=== PATIENT | female | born 1985 | race Caucasian/White ===

== ENCOUNTER 2019-06-19 08:23 | Outpatient (CLI) | payer MEDICAID, SELFPAY ==
--- NOTE | 2019-06-19 09:00 | IR_ITS ---
WS: [id number] Lumbar myelogram, 06/19/2019 Clinical Data: S/P fusion/fixation Comparison: Lumbar spine, 04/03/2019. Fluoroscopy time: 1.0 minutes. Findings: With the usual technique, a 22 gauge spinal needle was inserted into the lumbar subarachnoid space at L2-L3. The contrast material was hand injected. Approximately 15 mL of 240 mg/mL Omnipaque filled the lumbar subarachnoid space. The patient has had a posterior lumbar fusion with bilateral pedicle screws connected with rods at L5 -S1. There is an artificial disc at L5-S1. A laminectomy at L5 is noted. There are clips in the right upper quadrant from a cholecystectomy. No intramedullary, intradural or extradural defects could be seen. The contrast material normally in to the lower thoracic subarachnoid space. Flexion, extension and neutral lateral views demonstrated no limitations of motion or increase in sub luxation. Posterior lumbar fusion was stable. IR/IR myelogram sp lumbar [id number] Impression: 1. Negative lumbar myelogram. 2. Posterior lumbar fusion at L5-S1 is stable.
[2019-06-19] MEDS: iohexol 240 mg/mL 50 mL Btl INTRATHECA (10:00)
--- NOTE | 2019-06-19 11:30 | CT_ITS ---
WS: [id number] CT of the lumbar spine, additional two-dimensional coronal and sagittal imaging was obtained. 06/19/19 Clinical Data: S/P fusion/fixation Comparison: None. DLP: 1906.[address] scans at [facility] use at least one of these dose optimization techniques: automat ed exposure control; mA and/or kV adjustment per patient size (includes targeted exams where dose is matched to clinical indication); or iterative reconstruction. Findings: The myelographic contrast material filled the lumbar subarachnoid space. The posterior lumb ar fusion at L5-S1 with bilateral pedicle screws appears intact. Artificial disc material at L5-S1 is noted. The remainder of the disc levels are normal. No compression fractures are seen. The transvers e processes and SI joints are not remarkable. T12-L1: No canal stenosis, disc bulge or foraminal narrowing is seen. L1-L2: No canal stenosis, disc bulge or foraminal narrowing is seen. L2-L3: No canal stenosis, disc bulge or foraminal narrowing is seen. L3-L4: No canal stenosis, disc bulge or foraminal narrowing is seen. L4-L5: There is facet joint arthritis causing mild bilateral foraminal stenosis along with a small di sc bulge. A laminectomy has been performed. L5-S1: No canal stenosis, disc bulge or foraminal narrowing is seen. CT/CT lumbar spine w con [id number] Impression: 1. Intact lumbar fusion at L5-S1. 2. Minimal facet joint arthritis with central disc bulge at L4-L5 causing mild bilateral foraminal stenosis.
== END 2019-06-19 08:24 | disposition home or self-care (01) ==
LOC: RADWPI 08:28
PROVIDERS: PCP Nurse Practitioner Family; Visit Provider Licensed Practical Nurse
DX: Z98.1 Arthrodesis status (principal); M51.26 Other intervertebral disc displacement, lumbar region
CPT/HCPCS: 62304; 72120; 72132; Q9966